=== PATIENT | female | born 1950 | race Caucasian/White ===

== ENCOUNTER 2024-10-13 17:07 | Inpatient (IN) | payer MEDICARE ==
[~2024-10-13] VITALS: Ht 149.9 cm; Wt 64.0 kg
[2024-10-13 19:26] LABS: BASOPHILS # (AUTO) 0.1 K/uL (0.0-0.2); BASOPHILS % (AUTO) 0.7 % (0.0-2.0); EOSINOPHILS # (AUTO) 0.2 K/uL (0.0-0.7); EOSINOPHILS % (AUTO) 2.1 % (0.0-6.0); HEMATOCRIT 32 % (33-45); HEMOGLOBIN 10.8 g/dL (11.5-14.8); LYMPHOCYTES # (AUTO) 4.5 K/uL (0.8-4.8); LYMPHOCYTES % (AUTO) 56.8 % (20.0-44.0); MEAN CORPUSCULAR HEMOGLOBIN 30 PG (26.0-33.0); MEAN CORPUSCULAR HGB CONC 34 g/dl (31.0-36.0); MEAN CORPUSCULAR VOLUME 89 fL (82-100); MONOCYTES # (AUTO) 0.4 K/uL (0.1-1.30); MONOCYTES % (AUTO) 5.6 % (2.0-12.0); NEUTROPHILS # (AUTO) 2.7 K/uL (1.8-8.9); NEUTROPHILS % (AUTO) 34.8 % (43.0-81.0); PLATELET COUNT (AUTO) 158 K/uL (150-450); RED BLOOD CELL COUNT(AUTO) 3.58 MIL/uL (4.0-5.2); RED CELL DISTRIBUTION WIDTH 13.5 % (11.5-15.0); WHITE BLOOD COUNT (AUTO) 7.9 K/uL (4.3-11.0)
[2024-10-13 19:42] LABS: CALCIUM, SERUM 9.6 mg/dL (8.5-10.1); CARBON DIOXIDE 29 mmol/L (21-32); CHLORIDE 104 mmol/L (98-107); CREATININE 1.2 mg/dL (0.6-1.3); GLUCOSE 114 mg/dL (74-106); POTASSIUM 5.3 mmol/L (3.5-5.1); SODIUM SERUM 139 mmol/L (136-145); UREA NITROGEN, BLOOD 21 mg/dL (7-18)
[2024-10-13 19:48] LABS: ALANINE AMINOTRANSFERASE 25 U/L (12-78); ALBUMIN 4.3 g/dL (3.4-5.0); ALKALINE PHOSPHATASE 55 U/L (46-116); ASPARTATE AMINOTRANSFERASE 22 U/L (15-37); BILIRUBIN,DIRECT 0.2 mg/dL (0.0-0.2); BILIRUBIN,TOTAL 0.4 mg/dL (0.2-1.0); TOTAL PROTEIN, SERUM 7.6 g/dL (6.4-8.2)
[2024-10-13] MEDS ORDERED: ACETAMINOPHEN 325 MG TABLET ONE (20:02)
[2024-10-13] MEDS: ACETAMINOPHEN 325 MG TABLET PO ONE (20:18)
[2024-10-13] MEDS ORDERED: KETOROLAC TROMETHAMINE 15 MG/ML VIAL ONE (20:58)
[2024-10-13] MEDS: KETOROLAC TROMETHAMINE 15 MG/ML VIAL IV ONE (21:03)
[2024-10-13] MEDS ORDERED: CALCIUM CHLORIDE 1,000 MG/10 ML DISP.SYRIN ONE (22:34)
[2024-10-13] MEDS ORDERED: SODIUM BICARBONATE 5 MEQ/10 ML DISP.SYRIN IV ONE (22:34)
[2024-10-13] MEDS ORDERED: FUROSEMIDE 20 MG/2 ML VIAL ONE (22:34)
[2024-10-13] MEDS ORDERED: SODIUM ZIRCONIUM CYCLOSILICATE 5 GM POWD.PACK ONE (22:35)
[2024-10-13] MEDS: FUROSEMIDE 40 MG/4 ML VIAL IV ONE (22:59)
[2024-10-13] MEDS: CALCIUM CHLORIDE 1,000 MG/10 ML DISP.SYRIN IV ONE (22:59)
[2024-10-13] MEDS: SODIUM BICARBONATE SYR 50 MEQ/50 ML DISP.SYRIN IV ONE (22:59)
[2024-10-13] MEDS: SODIUM ZIRCONIUM CYCLOSILICATE 5 GM POWD.PACK PO ONE (23:25)
[2024-10-13] MEDS ORDERED: MAG HYDROX/AL HYDROX/SIMETH 30 ML UDC PO PRN (23:30)
[2024-10-13] MEDS ORDERED: ACETAMINOPHEN 325 MG TABLET PO PRN (23:30)
[2024-10-13] MEDS ORDERED: ONDANSETRON HCL/PF 4 MG/2 ML VIAL IVP PRN (23:30)
[2024-10-13] MEDS ORDERED: Z GUARD REMEDY 4 OZ OINT TP PRN (23:30)
[2024-10-13] MEDS ORDERED: MAGNESIUM HYDROXIDE 30 ML UDC PO PRN (23:30)
[2024-10-13] MEDS ORDERED: ZOLPIDEM TARTRATE 5 MG TABLET PO PRN (23:30)
[2024-10-13 23:59] LABS: ANISOCYTOSIS 1+; BASOPHILS % (MANUAL) 0 % (0.0-2.0); EOSINOPHILS % (MANUAL) 3 % (0-4); LYMPHOCYTES % (MANUAL) 54 % (16-48); MONOCYTES % (MANUAL) 7 % (0-11.0); NEUTROPHILS % (MANUAL) 36 (42-76); OVALOCYTES 1+; PLATELET ESTIMATE ADEQUATE
[2024-10-14] MEDS: CLONIDINE HCL 0.1 MG TABLET PO PRN (01:14)
[2024-10-14 04:00] VITALS: BP 104/65; TEMP 98.1; O2SAT 99
[2024-10-14] MEDS ORDERED: LOSA50TA39 PO (05:50)
[2024-10-14] MEDS ORDERED: LEVO50TA8 PO (05:50)
[2024-10-14] MEDS ORDERED: PNV1TAB.3 PO (05:50)
[2024-10-14] MEDS ORDERED: BLOO-668 IN (05:50)
[2024-10-14] MEDS ORDERED: CALC-1118 PO (05:50)
[2024-10-14] MEDS ORDERED: METF500T PO (05:50)
[2024-10-14] MEDS ORDERED: SAXA2.5T PO (05:50)
[2024-10-14] MEDS ORDERED: METO25TA3 PO (05:50)
[2024-10-14] MEDS ORDERED: ROSU10TA2 PO (05:50)
[2024-10-14 07:00] LABS: BASOPHILS # (AUTO) 0.1 K/uL (0.0-0.2); BASOPHILS % (AUTO) 0.7 % (0.0-2.0); EOSINOPHILS # (AUTO) 0.2 K/uL (0.0-0.7); EOSINOPHILS % (AUTO) 2.9 % (0.0-6.0); HEMATOCRIT 27 % (33-45); HEMOGLOBIN 9.6 g/dL (11.5-14.8); LYMPHOCYTES % (AUTO) 55.2 % (20.0-44.0); MEAN CORPUSCULAR HEMOGLOBIN 31 PG (26.0-33.0); MEAN CORPUSCULAR HGB CONC 35 g/dl (31.0-36.0); MEAN CORPUSCULAR VOLUME 88 fL (82-100); MONOCYTES # (AUTO) 0.4 K/uL (0.1-1.30); MONOCYTES % (AUTO) 6.2 % (2.0-12.0); NEUTROPHILS # (AUTO) 2.5 K/uL (1.8-8.9); PLATELET COUNT (AUTO) 141 K/uL (150-450); RED CELL DISTRIBUTION WIDTH 13.3 % (11.5-15.0); WHITE BLOOD COUNT (AUTO) 7.2 K/uL (4.3-11.0)
[2024-10-14 07:18] LABS: CALCIUM, SERUM 10.4 mg/dL (8.5-10.1); CARBON DIOXIDE 31 mmol/L (21-32); CHLORIDE 107 mmol/L (98-107); CREATININE 1.2 mg/dL (0.6-1.3); GLUCOSE 147 mg/dL (74-106); MAGNESIUM 1.7 mg/dL (1.8-2.4); PHOSPHORUS 4.7 mg/dL (2.5-4.9); POTASSIUM 4.9 mmol/L (3.5-5.1); SODIUM SERUM 144 mmol/L (136-145); UREA NITROGEN, BLOOD 28 mg/dL (7-18)
[2024-10-14] MEDS: PANTOPRAZOLE 40 MG TABLET.DR PO SCH (07:53)
[2024-10-14 08:00] VITALS: BP 145/69; TEMP 97.5; O2SAT 100
[2024-10-14] MEDS: MAGNESIUM OXIDE 400 MG TABLET PO ONE (11:10)
[2024-10-14] MEDS ORDERED: DEXTROSE 50%-WATER 50 ML DISP.SYRIN IV PRN (11:30)
[2024-10-14] MEDS: INSULIN REGULAR, HUMAN 100 UNIT/ML 3 ML VIAL SQ PRN (11:54)
[2024-10-14] MEDS: BLOOD SUGAR DIAGNOSTIC 1 EACH STRIP IN SCH (12:09)
[2024-10-14] MEDS: METOPROLOL SUCCINATE 50 MG TAB.SR.24H PO SCH (12:30)
[2024-10-14 12:33] VITALS: BP 144/67
[2024-10-14] MEDS: hydrALAZINE HCL 25 MG TABLET PO SCH (12:33)
[2024-10-14] MEDS ORDERED: AMLO2.5T4 PO (12:49)
[2024-10-14] MEDS ORDERED: METO50TA7 PO (12:49)
[2024-10-15] MEDS ORDERED: LEVOTHYROXINE SODIUM 50 MCG TABLET PO SCH (09:00)
[2024-10-15] MEDS ORDERED: CALCIUM CARB 600MG /VIT D 1 EACH TABLET PO SCH (09:00)
[2024-10-15] MEDS ORDERED: ATORVASTATIN 40 MG TABLET PO SCH (09:00)
== END 2024-10-14 15:00 | disposition home or self-care (01) | DRG 641 ==
LOC: ER 17:11 → TELE 10-14 00:05
PROVIDERS: ADMIT Nurse Practitioner Family; ATTEND Nurse Practitioner Acute Care
DX: E87.5 Hyperkalemia (principal); I16.0 Hypertensive urgency; E11.9 Type 2 diabetes mellitus without complications; D63.8 Anemia in other chronic diseases classified elsewhere; E66.3 Overweight; E78.5 Hyperlipidemia, unspecified; E83.52 Hypercalcemia; E86.1 Hypovolemia; I10 Essential (primary) hypertension; Z79.84 Long term (current) use of oral hypoglycemic drugs; R51.9 Headache, unspecified; T46.5X5A Adverse effect of other antihypertensive drugs, initial encounter; Y92.009 Unspecified place in unspecified non-institutional (private) residence as the place of occurrence of the external cause
CPT/HCPCS: 36415; 70450-TC; 76770-TC; 80048-TC; 80076-TC; 82962-TC; 83735-TC; 84100-TC; 84132-TC; 84443-TC; 84484-TC; 85025-TC; G0378; J1815; J1885; J1940; J3490